=== PATIENT | male | born 1990 | race Hispanic/Latino ===

== ENCOUNTER 2022-09-22 10:51 | Emergency (ER) | payer OTHER, SELFPAY ==
[2022-09-22 11:05] VITALS: BP 155/96; PULSE 86; RESP 16; TEMP 37.7; O2SAT 99
--- NOTE | 2022-09-22 11:30 | ED.EXTPRO ---
HPI - Extremity Problem General Chief complaint: Extremity Injury, Lower Stated complaint: Left Foot Pain Time Seen by Provider: 09/22/22 11:30 Source: patient and RN notes reviewed Mode of arrival: ambulatory Limitations: no limitations History of Present Illness HPI Narrative: 32-year-old male presents with concern for left ankle and foot inflammation and pain, left elbow pain. He denies injury or trauma to either of these extremities. Reports symptoms started about a month ago. He reports he has difficulty straightening his elbow. 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 He reports he has had instances of joint inflammation intermittently for the past year and half. He reports he takes ibuprofen which helps, but the symptoms return MD Complaint: extremity pain and extremity swelling Related Data Allergies Allergy/AdvReac Type Severity Reaction Status Date / Time No Known Allergies Allergy Verified 09/22/22 11:04 Review of Systems Review of Systems: CONSTITUTIONAL: Denies malaise, chills, sweats, or fever. CARDIOVASCULAR: Denies chest pain, palpitations, or edema. RESPIRATORY: Denies cough or dyspnea. SKIN: Denies rash or itching, bruising, redness MUSCULOSKELETAL: Reports left elbow pain, left ankle and foot pain with swelling NEUROLOGIC: Denies numbness, weakness All systems reviewed & are unremarkable except as noted in HPI and below PMFSH Comments At time of signature, agree with nursing past medical, surgical, social and family history. There is no relevant family history pertinent to the presenting complaint Exam Narrative: GENERAL: Well-appearing, well-nourished, and in no acute distress. HEAD: Normocephalic, atraumatic. EYES: PERRLA, conjunctivae clear NECK: Supple. CHEST: Speaks in full sentences. No respiratory distress. HEART: Regular rate and rhythm. Normal and equal peripheral pulses. EXTREMITIES: Left ankle, foot, digits have normal strength and sensation, grossly normal range of motion. Mild ankle edema without erythema, warmth, or ecchymosis. 5/5 strength with ankle in digit flexion and extension. Normal sensation with sensitivity to light touch and pain. Lateral ankle tenderness. No open wounds, no skin tenting, no devitalized tissue or atrophy, no trophic changes, no obvious deformity, alignment normal, nearby joints and structures intact. Distal pulses palpable and equal bilaterally, skin warm, dry, pink. Capillary refill less than 3 seconds. Left elbow has normal strength and sensation, normal range of motion. No edema or ecchymosis. 4/5 strength with left hair colorist strength. Normal sensation with sensitivity to light touch and pain. No point tenderness. No open wounds, no skin tenting, no devitalized tissue or atrophy, no trophic changes, no obvious deformity, alignment normal, nearby joints and structures intact. Distal pulses palpable and equal bilaterally, skin warm, dry, pink. Capillary refill less than 3 seconds. SKIN: Warm, dry, no rash. NEURO: Alert and oriented x3. PSYCH: Normal mood and affect Course Course Emergency Course: Patient is aware of diagnosis, understands and agrees to treatment plan. Anticipatory guidance given. Patient agrees to follow-up as directed and is aware of reasons to seek care at the emergency department. Portions of this record may have been created with voice recognition software Level of Care: Express Care Visit Vital Signs Vital signs: Vital Signs Temperature 99.9 F H 09/22/22 11:05 Pulse Rate 86 09/22/22 11:05 Respiratory Rate 16 09/22/22 11:05 Blood Pressure 155/96 H 09/22/22 11:05 Pulse Oximetry 99 09/22/22 11:05 Oxygen Delivery Room Air 09/22/22 11:05 Temperature 99.9 F H 09/22/22 11:05 Pulse Rate 86 09/22/22 11:05 Respiratory Rate 16 09/22/22 11:05 Blood Pressure 155/96 H 09/22/22 11:05 Pulse Oximetry 99 09/22/22 11:05 Oxygen Delivery Room Air 09/22/22 11:05 Reviewe
== END 2022-09-22 11:46 | disposition home or self-care (01) ==
PROVIDERS: Emergency Provider Nurse Practitioner
DX: M19.072 Primary osteoarthritis, left ankle and foot (principal)
CPT/HCPCS: 99203; G0463